=== PATIENT | male | born 1990 | race Caucasian/White ===

== ENCOUNTER 2024-11-19 11:05 | Inpatient (IN) | payer OTHER ==
[~2024-11-19] VITALS: Ht 167.6 cm; Wt 70.1 kg
--- NOTE | 2024-11-19 11:45 | ED.PDOC ---
GI ASSESSMENT HPI Comments 34 y.o male presents to the ED for a chief complaint of RLQ pain associated with nausea and vomiting that started this morning around 0900. Patient describes pain as sharp, constant, and non radiating with a pain rate of 10/10. Patient denies any diarrhea, fever, chills, hematemesis, dysuria. History of seizures with port insertion. Chief Complaint: Abdominal Pain Time Seen by MD: 10:37 Reviewed Notes: Nurses Notes, Medications, Allergies Allergies: Uncoded Allergies: BEES (Allergy, Unknown, 11/19/24) Information Source: Patient Mode of Arrival: Ambulatory Timing: Hours Duration: Since onset Quality: Sharp Vomitus: Hard Stool: Normal Severity: Moderate Recent: None Recent Hx of: None Pain Location: RLQ Modifying Factors: Nothing Associated sign and symptoms: Nausea, Vomiting, Abdominal Pain Past Medical History PAST MEDICAL HISTORY: Seizures Surgical History (Other): port Family History Family History: Reviewed,noncontributory to illness Social History Smoker: Non-Smoker Alcohol: Denies ETOH Use Drugs: Denies Drug Use Lives In: Home Constitutional: denies: chills, diaphoresis, fatigue, fever, malaise, sweats, weakness, others EENTM: denies: blurred vision, double vision, ear bleeding, ear discharge, ear drainage, ear pain, ear ringing, eye pain, eye redness, hearing loss, mouth pain, mouth swelling, nasal discharge, nose bleeding, nose congestion, nose pain, photophobia, tearing, throat pain, throat swelling, voice changes, others Respiratory: denies: cough, hemoptysis, orthopnea, SOB at rest, shortness of breath, SOB with excertion, stridor, wheezing, others Cardiovascular: denies: chest pain, dizzy spells, diaphoresis, Dyspnea on exertion, edema, irregular heart beat, left arm pain, lightheadedness, p alpitations, PND, syncope, others Gastrointestinal: reports: abdominal pain, nausea, vomiting; denies: abdomen distended, blood streaked bowels, constipated, diarrhea, dysphagia, difficulty swallowing, hematemesis, melena, poor appetite, poor fluid intake, rectal bleeding, rectal pain, others Genitourinary: denies: burning, dysuria, flank pain, frequency, hematuria, incontinence, penile discharge, penile sore, pain, testicle pain, testicle swelling, urgency, others Neurological: denies: dizziness, fainting, headache, left sided numbness, left sided weakness, numbness, paresthesia, pre-existing deficit, right sided numbness, right sided weakness, seizure, speech problems, tingling, tremors, weakness, others Musculoskeletal: denies: back pain, gout, joint pain, joint swelling, muscle pain, muscle stiffness, neck pain, others Integumetry: denies: bruises, change in color, change in hair/nails, dryness, laceration, lesions, lumps, rash, wounds, others Allergic/Immunocompromised: denies: Difficulty Healing, Frequent Infections, Hives, Itching, others Hematologic/Lymphatic: denies: anemia, blood clots, easy bleeding, easy bruising, swollen glands, others Endocrine: denies: excessive hunger, excessive sweating, excessive thirst, excessive urination, flushing, intolerance to cold, intolerance to heat, unexplained weight gain, unexplained weight loss, others Psychiatric: denies: anxiety, bipolar disorder, depression, hopeless, panic disorder, schizophrenia, sleepless, suicidal, others All Other Systems: Reviewed and Negative Physical Exam General Appearance: Moderate Distress HEENT: Normal ENT Inspection, Pharynx Normal, TMs Normal Neck: Full Range of Motion, Non-Tender, Normal, Normal Inspection Respiratory: Chest Non-Tender, Lungs Clear, No Accessory Muscle Use, No Resp iratory Distress, Normal Breath Sounds Cardiovascular: No Edema, No JVD, No Murmur, No Gallop, Normal Peripheral Pulses, Regular Rate/Rhythm Breast Exam: Deferred Gastrointestinal: Diffuse Genitalia: Deferred Pelvic: Deferred Rectal: Deferred Extremities: No calf tenderness, Normal capillary refill, Normal inspection, Normal range of motion, Non-tender, No pedal edema Musculoskeletal : Apperance: Normal Neurologic: Alert, vb net programmer II-XII nml as Tested, No Motor Deficits, Normal Affect, Normal Mood, No Sensory Deficits Cerebellar Function: NOT DONE Reflexes: NOT DONE Skin: Dry, Normal Color, Warm Peripheral Pulses: 3+ Radial (R), 3+ Radial (L) Lymphatic: No Adenopathy Was a procedure done? Was a procedure done?: No GI differential Dx Differential Diagnosis: Constipation, Diverticular disease, Esophagitis, Gastritis/PUD, Gastroenteritis, Viral X-Ray, Labs, Meds, VS Vital Signs Date Time Temp Pulse Resp B/P (MAP) Pulse Ox O2 Delivery O2 Flow Rate FiO2 11/19/24 11:11 98.0 71 18 114/64 97 98.0 Lab Test 11/19/24 12:18 Range/Units White Blood Count 13.1 H 4.4-10.8 10^3/uL Red Blood Count 4.91 4.5-5.90 10^6/uL Hemoglobin 14.6 13.5-17.5 g/dL Hematocrit 43.2 41.0-53.0 % Mean Corpuscular Volume 87.8 80.0-100.0 fL Mean Corpuscular Hemoglobin 29.7 28.0-32.0 pg Mean Corpuscular Hemoglobin Concent 33.8 32.0-36.0 g/dL Red Cell Distribution Width 13.9 11.8-14.3 % Platelet Count 314 140-450 10^3/uL Mean Platelet Volume 7.2 6.9-10.8 fL Neutrophils (%) (Auto) 86.2 H 37.0-80.0 % Lymphocytes (%) (Auto) 7.8 L 10.0-50.0 % Monocytes (%) (Auto) 5.5 0.0-12.0 % Eosinophils (%) (Auto) 0.3 0.0-7.0 % Basophils (%) (Auto) 0.2 0.0-2.0 % Neutrophils # (Auto) 11.2 H 1.6-8.6 10 ^3/uL Lymphocytes # (Auto) 1.0 0.4-5.4 10 ^3/uL Monocytes # (Auto) 0.7 0-1.3 10 ^3/uL Eosinophils # (Auto) 0 0-0.8 10 ^3/uL Basophils # (Auto) 0 0-0.2 10 ^3/uL Nucleated Red Blood Cells 0.0 % Sodium Level 141 136-145 mmol/L Potassium Level 4.3 3.5-5.1 mmol/L Chloride Level 110 H 98-107 mmol/L Carbon Dioxide Level 19 L 20-31 mmol/L Anion Gap 12 5-15 Blood Urea Nitrogen 6 L 9-23 mg/dL Creatinine 1.10 0.700-1.30 mg/dL Glomerular Filtration Rate Calc 89 >90 mL/min BUN/Creatinine Ratio 5.5 L 10.0-20.0 Serum Glucose 127 H 74-106 mg/dL Calcium Level 9.1 8.7-10.4 mg/dL [place] [address] Ph: [phone] DIAGNOSTIC IMAGING Diagnostic Imaging Report : [id number] Signed PATIENT: SUE CRAVEN ACCT: [id number] UNIT: [id number] : 1990 LOC: ER ROOM / BED: / AGE / SEX: 34 / M ADM STATUS: REG ER SERVICE 1145 ORDERING PHYSICIAN: VANI AWAD MD PROCEDURE(s): ABPL - CT AB PEL WO CON-NO ORAL OR IV REASON: stone ORDER NUMBER(s): [id number], ACCESSION NUMBER(s): [id number] CLINICAL INFORMATION: 34 years old, Male; stone. TECHNIQUE: Axial CT images of the abdomen and pelvis were obtained without IV contrast. Coronal and sagittal reformatted images were obtained, reviewed, and stored. Evaluation of the parenchymal organs is limited without IV contrast. Evaluation of the bowel and mesentery is limited without oral contrast. All CT scans at this medical facility are performed using dose modulation techniques as appropriate to a performed exam including the following: Automated exposure control was utilized; adjustment of the MA and/or KV according to patient size; and use of iterative reconstruction technique. CTDIvol = 7.05 mGy DLP = 382.51 mGy-cm COMPARISON: None FINDINGS: Lung bases: Ground-glass opacities in the right lower lobe, likely infectious or inflammatory in nature. Liver: Grossly unremarkable in its noncontrast enhanced appearance. No abnormal density or focal lesion identified. Biliary: No calcified gallstones or biliary ductal dilatation. Spleen: Unremarkable. Pancreas: Grossly unremarkable in its noncontrast enhanced appearance. Adrenal glands: Unremarkable. No mass. Kidneys and bladder: Moderate right hydronephrosis and hydroureter with punctate calculus in the right posterior bladder, likely recently passed bladder calculus. No other renal or ureteral calculi visualized. Mild circumferential thickening of the bladder wall also noted. Aorta/Vascular: No aneurysm or significant calcification. Retroperitoneum: No mass or lymphadenopathy. Bowel/mesentery: No small bowel obstruction. No free air or free fluid. Appendix is visualized and appears unremarkable. Scattered small colonic diverticula without adjacent inflammatory changes to suggest diverticulitis. Pelvic organs: Grossly unremarkable. Abdominal wall: No mass or hernia. Bones: No acute fracture or suspicious intraosseous lesion. Chronic deformity at the superior endplate of the L2 vertebral body with associated Schmorl's node and up to 20% loss of height. IMPRESSION: 1. Moderate right hydronephrosis and hydroureter with punctate calculus in the right posterior bladder, likely recently passed bladder calculus. Correlate with clinical findings. 2. No other renal or ureteral calculi visualized. 3. Mild circumferential thickening of the bladder wall is nonspecific. Correlate clinically for cystitis. 4. Additional nonacute findings as described above. Patient alert. Came in for abdominal pain. Excruciating pain. Vitals stable. Possible kidney stone. Establish intravenous access. Was given fluids. Was given Toradol. CT scan of the abdomen reviewed does show kidney stone. Possibly passed. Hydronephrosis. WBC elevated. Was given Rocephin. Explained to the patient. Continue monitoring. Time of 1ST Reevaluation: 11:42 Reevaluation 1ST: Unchanged Patient Education/Counseling: Diagnosis, Treatment, Prognosis Family Education/Counseling: Diagnosis, Treatment SEPSIS Sepsis Screen Date sepsis recognized/suspect: Nov 19, 2024 Time Sepsis recognized/suspect: 1105 Recent Procedure: No On Antibiotic Therapy: No Respiratory Rate >20: No Heart Rate >90: No Temp<36 C (96.8 F) or >38.3 C: No SBP <90 or MAP <65 mmHG: No New Acute Mental Status Change: No Is the patient on CPAP, BIPAP,: No Physician Orders Urinalysis (11/19/24 11:45) Ct Ab Pel Wo Con-No Oral Or Iv (11/19/24 11:45) Vital Signs Date Time Temp Pulse Resp B/P (MAP) Pulse Ox O2 Delivery O2 Flow Rate FiO2 11/19/24 11:11 98.0 71 18 114/64 97 98.0 Laboratory Tests Test 11/19/24 12:18 White Blood Count 13.1 10^3/uL (4.4-10.8) H Departure 1 Departure Time of Disposition: 14:05 Impression: Primary Impression: Acute abdominal pain Additional Impressions: Kidney stone Sepsis due to urinary tract infection Disposition: ADMITTED INPATIENT Admit to: Med Surg Condition: Guarded Critical Care Note Critical Care Time?: No Stability Stability form required: No I personally scribed for VANI AWAD MD ([email or web address]) on 11/19/24 at 11:45. Electronically submitted by Sheeba Savage ([facility]). I personally scribed for VANI AWAD MD ([email or web address]) on 11/19/24 at 14:39. Electronically submitted by Fara May ([facility]). VANI AWAD MD Nov 19, 2024 11:45
[2024-11-19 12:27] LABS: Hematocrit 43.2 % (41.0-53.0); Hemoglobin 14.6 g/dL (13.5-17.5); Mean Corpuscular Hemoglobin 29.7 pg (28.0-32.0); Mean Corpuscular Volume 87.8 fL (80.0-100.0); Nucleated Red Blood Cells % 0.0 %
[2024-11-19 12:35] LABS: Potassium 4.3 mmol/L (3.5-5.1); Sodium 141 mmol/L (136-145)
[2024-11-19 12:36] LABS: Anion Gap 12 (5-15); Calcium 9.1 mg/dL (8.7-10.4)
[2024-11-19 12:41] LABS: BUN/Creatinine Ratio 5.5 (10.0-20.0)
--- NOTE | 2024-11-19 12:48 | DVH ---
CLINICAL INFORMATION: 34 years old, Male; stone. TECHNIQUE: Axial CT images of the abdomen and pelvis were obtained without IV contrast. Coronal and s agittal reformatted images were obtained, reviewed, and stored. Evaluation of the parenchymal organs is limited without IV contrast. Evaluation of the bowel and mesentery is limited without oral contras t. All CT scans at this medical facility are performed using dose modulation techniques as appropriat e to a performed exam including the following: Automated exposure control was utilized; adjustment of the MA and/or KV according to patient size; and use of iterative reconstruction technique. CTDIvol = 7.05 mGy DLP = 382.51 mGy-cm COMPARISON: None FINDINGS: Lung bases: Ground-glass opacities in the right lower lobe, likely infectious or inflammatory in natu re. Liver: Grossly unremarkable in its noncontrast enhanced appearance. No abnormal density or focal lesi on identified. Biliary: No calcified gallstones or biliary ductal dilatation. Spleen: Unremarkable. Pancreas: Grossly unremarkable in its noncontrast enhanced appearance. Adrenal glands: Unremarkable. No mass. Kidneys and bladder: Moderate right hydronephrosis and hydroureter with punctate calculus in the righ t posterior bladder, likely recently passed bladder calculus. No other renal or ureteral calculi visu alized. Mild circumferential thickening of the bladder wall also noted. Aorta/Vascular: No aneurysm or significant calcification. Retroperitoneum: No mass or lymphadenopathy. Bowel/mesentery: No small bowel obstruction. No free air or free fluid. Appendix is visualized and ap pears unremarkable. Scattered small colonic diverticula without adjacent inflammatory changes to sug gest diverticulitis. Pelvic organs: Grossly unremarkable. Abdominal wall: No mass or hernia. Bones: No acute fracture or suspicious intraosseous lesion. Chronic deformity at the superior endplat e of the L2 vertebral body with associated Schmorl's node and up to 20% loss of height. IMPRESSION: 1. Moderate right hydronephrosis and hydroureter with punctate calculus in the right posterior bladde r, likely recently passed bladder calculus. Correlate with clinical findings. 2. No other renal or ureteral calculi visualized. 3. Mild circumferential thickening of the bladder wall is nonspecific. Correlate clinically for cysti tis. 4. Additional nonacute findings as described above.
[2024-11-19 13:17] LABS: Blood Urea Nitrogen 6 mg/dL (9-23); Carbon Dioxide 19 mmol/L (20-31); Chloride 110 mmol/L (98-107); Glucose 127 mg/dL (74-106)
[2024-11-19 15:32] VITALS: PULSE 68; RESP 20; O2SAT 98
[2024-11-19] MEDS: SODIUM CHLORIDE 0.9% 1,000 ML IV ONE (15:36)
[2024-11-19] MEDS: ONDANSETRON HCL 4 MG/2 ML VIAL IV ONE (15:37)
[2024-11-19] MEDS: MORPHINE SULFATE 4 MG/ML SYR/VIAL IV ONE (15:38)
--- NOTE | 2024-11-19 16:26 | DVHHP2 ---
History of Present Illness History of Present Illness 34 y.o male presents to the ED for a chief complaint of RLQ pain associated with nausea and vomiting that started this morning around 0900. Patient describes pain as sharp, constant, and non radiating with a pain rate of 10/10. Patient complaining of suprapubic region pain, significant nausea and vomiting, unable to hold p.o., decreased urination, dry mouth. Patient denies any diarrhea, fever, chills, hematemesis, dysuria. History of seizures with port insertion. Review of Systems Constitutional: No: Fever, Chills, Sweats, Weakness, Malaise, Other Respiratory: No: Cough, Dry, Shortness of breath, SOB with excertion, Wheezing, Hemoptysis, Pleuritic Pain, Sputum, Wheezing, Other Cardiovascular: No: Chest Pain, Palpitations, Orthopnea, Paroxysmal Noc. Dyspnea, Edema, Lt Headedness, Other Gastrointestinal: Nausea, Vomiting; No: Abdominal Pain, Diarrhea, Constipation, Melena, Hematochezia, Other Genitourinary: No Dysuria, No Frequency, No Incontinence, No Hematuria, No Retention, No Other Neurological: No: Weakness, Numbness, Incoordination, Change in speech, Confusion, Seizures, Other Allergies: Uncoded Allergies: BEES (Allergy, Unknown, 11/19/24) Exam Vital Signs Vital Signs Date Time Temp Pulse Resp B/P (MAP) Pulse Ox O2 Delivery O2 Flow Rate FiO2 11/19/24 15:38 68 14 112/75 11/19/24 15:32 98 Room Air* 0 21 11/19/24 15:31 97.8 97.8 Exam GEN: Healthy appearing, well-developed, NAD. HEENT: NC/AT; MMM. CV: RRR, no m/r/g. LUNGS: CTAB, no w/r/c. ABD: Suprapubic tenderness, hypoactive bowel sounds EXT: skin Warm, well perfused. no rashes. No clubbing, cyanosis, or edema. NEURO: Ambulating with no limitations. No focal deficits. Labs/Xrays Labs Test 11/19/24 12:18 Range/Units White Blood Count 13.1 H 4.4-10.8 10^3/uL Red Blood Count 4.91 4.5-5.90 10^6/uL Hemoglobin 14.6 13.5-17.5 g/dL Hematocrit 43.2 41.0-53.0 % Mean Corpuscular Volume 87.8 80.0-100.0 fL Mean Corpuscular Hemoglobin 29.7 28.0-32.0 pg Mean Corpuscular Hemoglobin Concent 33.8 32.0-36.0 g/dL Red Cell Distribution Width 13.9 11.8-14.3 % Platelet Count 314 140-450 10^3/uL Mean Platelet Volume 7.2 6.9-10.8 fL Neutrophils (%) (Auto) 86.2 H 37.0-80.0 % Lymphocytes (%) (Auto) 7.8 L 10.0-50.0 % Monocytes (%) (Auto) 5.5 0.0-12.0 % Eosinophils (%) (Auto) 0.3 0.0-7.0 % Basophils (%) (Auto) 0.2 0.0-2.0 % Neutrophils # (Auto) 11.2 H 1.6-8.6 10 ^3/uL Lymphocytes # (Auto) 1.0 0.4-5.4 10 ^3/uL Monocytes # (Auto) 0.7 0-1.3 10 ^3/uL Eosinophils # (Auto) 0 0-0.8 10 ^3/uL Basophils # (Auto) 0 0-0.2 10 ^3/uL Nucleated Red Blood Cells 0.0 % Sodium Level 141 136-145 mmol/L Potassium Level 4.3 3.5-5.1 mmol/L Chloride Level 110 H 98-107 mmol/L Carbon Dioxide Level 19 L 20-31 mmol/L Anion Gap 12 5-15 Blood Urea Nitrogen 6 L 9-23 mg/dL Creatinine 1.10 0.700-1.30 mg/dL Glomerular Filtration Rate Calc 89 >90 mL/min BUN/Creatinine Ratio 5.5 L 10.0-20.0 Serum Glucose 127 H 74-106 mg/dL Calcium Level 9.1 8.7-10.4 mg/dL SEPSIS Sepsis Screen Date sepsis recognized/suspect: Nov 19, 2024 Time Sepsis recognized/suspect: 1104 Recent Procedure: No On Antibiotic Therapy: No Respiratory Rate >20: No Heart Rate >90: No Temp<36 C (96.8 F) or >38.3 C: No SBP <90 or MAP <65 mmHG: No New Acute Mental Status Change: No Is the patient on CPAP, BIPAP,: No Physician Orders Urinalysis (11/19/24 11:45) Ct Ab Pel Wo Con-No Oral Or Iv (11/19/24 11:45) Sodium Chloride 0.9% (11/19/24 15:30) Vital Signs Date Time Temp Pulse Resp B/P (MAP) Pulse Ox O2 Delivery O2 Flow Rate FiO2 11/19/24 15:38 68 14 112/75 11/19/24 15:32 68 20 98 Room Air* 0 21 11/19/24 15:31 97.8 68 14 112/75 (87) 98 97.8 11/19/24 11:11 98.0 71 18 114/64 97 98.0 Laboratory Tests Test 11/19/24 12:18 White Blood Count 13.1 10^3/uL (4.4-10.8) H Medications Medications Dose Ordered Sig/Skyler Route Start Time Stop Time Status Last Admin Dose Admin Morphine Sulfate 4 mg ONCE ONCE IV 11/19/24 15:30 11/19/24 15:31 DC 11/19/24 15:38 4 MG Ondansetron HCl 4 mg ONCE ONCE IV 11/19/24 15:30 11/19/24 15:31 DC 11/19/24 15:37 4 MG Sodium Chloride 1,000 ml @ 1,000 mls/hr Q1H ONCE IV 11/19/24 15:30 11/19/24 16:29 11/19/24 15:36 1,000 MLS/HR Assessment/Plan Assessment/Plan 11/19: Patient has been having nausea emesis since yesterday, unable to hold p.o.,. Patient takes seizure medications. History of epilepsy. CT concerning for past kidney stone, but symptoms align with gastroenteritis, although compli cated cystitis remains possibility. Pending correction UA, ED is giving normal saline 1 L bolus, antiemetics, analgesics. We will wait to her UA and urine culture. Diagnosis: Acute gastroenteritis, infectious etiology likely Nephrolithiasis Cystitis possible, ruled out Intractable nausea and vomiting due to above P.o. intolerance due to above History of epilepsy Plan: Continue home meds for seizures, lacosamide 200 b.i.d., Xcopri 200 mg daily, Topamax 100 mg twice daily Start IV antibiotics ceftriaxone Flagyl Test UA urine culture lactic IV fluid bolus then maintenance Antiemetics prn Analgesia prn Med surge Full code Plan discussed with: Patient Date of Service: Nov 19, 2024 Billing Provider: ITALIA THOMAS MD Common Visit Codes: 10403-CBSFOTK INP/OBS CARE (HIGH) Secondary Visit Codes: 12358-[id number] CARE PLAN 30 MINUTES ITALIA THOMAS MD Nov 19, 2024 16:26
[2024-11-19] MEDS ORDERED: ACETAMINOPHEN 325 MG TAB PO PRN (16:30)
[2024-11-19] MEDS: HYDROcodone-ACET 5/325MG TAB PO PRN (17:13)
[2024-11-19] MEDS: SODIUM CHLORIDE 0.9% 1,000 ML IV SCH (17:14)
[2024-11-19] MEDS ORDERED: ONDANSETRON HCL 4 MG/2 ML VIAL IV PRN (19:30)
[2024-11-19 21:30] VITALS: BP 109/72; PULSE 71; RESP 18; TEMP 97.6; O2SAT 98
[2024-11-19 21:34] LABS: Urine Amorphous Crystal FEW /hpf (None Seen); Urine Protein, UAD TRACE (Negative)
[2024-11-19] MEDS: TOPIRAMATE 100 MG TAB PO SCH (21:47)
[2024-11-19] MEDS: LACOSAMIDE 50 MG TAB PO SCH (22:00)
[2024-11-19 22:42] VITALS: BP 125/75; PULSE 90; RESP 18; TEMP 98.1; O2SAT 99
[2024-11-20] VITALS (7 sets, daily range): BP systolic 80–136; BP diastolic 50–86; PULSE 57–76; RESP 16–18; TEMP 97.5–98.2; O2SAT 95–99
[2024-11-20 07:24] LABS: Hematocrit 35.5 % (41.0-53.0); Hemoglobin 12.2 g/dL (13.5-17.5); Mean Corpuscular Hemoglobin 29.3 pg (28.0-32.0); Mean Corpuscular Volume 85.6 fL (80.0-100.0); Nucleated Red Blood Cells % 0.0 %
[2024-11-20 07:57] LABS: Alanine Aminotransferase 20 U/L (7-40); Albumin 3.8 g/dL (3.2-4.8); Alkaline Phosphatase 78 U/L (46-116); Anion Gap 11 (5-15); Bilirubin, Total 0.5 mg/dL (0.2-1.0); Glucose 94 mg/dL (74-106); Potassium 3.7 mmol/L (3.5-5.1); Sodium 142 mmol/L (136-145); Total Protein 5.8 g/dL (5.7-8.2)
[2024-11-20 08:01] LABS: BUN/Creatinine Ratio 5.9 (10.0-20.0); Blood Urea Nitrogen < 5 mg/dL (9-23); Calcium 8.2 mg/dL (8.7-10.4); Carbon Dioxide 19 mmol/L (20-31); Chloride 112 mmol/L (98-107)
[2024-11-20] MEDS: XCOPRI 200 MG PO SCH (09:09)
--- NOTE | 2024-11-20 12:24 | DVHPN2 ---
Subjective seen at bedside today, doing well today. improving symptoms. Reviewed: H&P Changes from previous H/P or p: No Changes General: Per HPI Cardiovascular: No Chest Pain, No Palpitations, No Orthopnea, No Paroxysmal Noc. Dyspnea, No Edema, No Lt Headedness, No Other Respiratory: No Cough, No Dry, No Shortness of breath, No SOB with excertion, No Wheezing, No Hemoptysis, No Pleuritic Pain, No Sputum, No Other Gastrointestinal: Nausea, Vomiting; No Abdominal Pain, No Diarrhea, No Constipation, No Melena, No Hematochezia, No Other Genitourinary: No Dysuria, No Frequency, No Incontinence, No Hematuria, No Retention, No Other Objective Vitals Vital Signs Date Time Temp Pulse Resp B/P (MAP) Pulse Ox O2 Delivery O2 Flow Rate FiO2 11/20/24 09:00 97.6 66 16 80/52 (61) 98 97.6 11/20/24 08:00 Room Air* 0 21 Intake/Output Intake and Output 11/20/24 07:00 Intake Total 1350 ml Balance 1350 ml Intake Oral 250 ml IV Total 1100 ml # Voids 2 Exam GEN: Healthy appearing, well-developed, NAD. HEENT: NC/AT; MMM. CV: RRR, no m/r/g. LUNGS: CTAB, no w/r/c. ABD: Suprapubic tenderness, hypoactive bowel sounds EXT: skin Warm, well perfused. no rashes. No clubbing, cyanosis, or edema. NEURO: Ambulating with no limitations. No focal deficits. Medications Current Medications Medications Dose Ordered Sig/Skyler Route Start Time Stop Time Status Last Admin Dose Admin Sodium Chloride 1,000 ml @ 60 mls/hr [id number] IV 11/19/24 16:30 11/20/24 03:53 60 MLS/HR Acetaminophen/ Hydrocodone Bitart 1 tab Q4HP PRN PO 11/19/24 16:30 11/19/24 23:17 1 TAB Ondansetron HCl 4 mg Q4HP PRN IV 11/19/24 19:30 Acetaminophen 650 mg Q6HP PRN PO 11/19/24 16:30 Morphine Sulfate 2 mg Q4HPRN PRN IV 11/19/24 19:30 Ceftriaxone Sodium 50 ml @ 100 mls/hr DAILY@09 IV 11/19/24 16:30 11/20/24 08:58 100 MLS/HR Metronidazole 100 ml @ 100 mls/hr Q8HR IV 11/19/24 22:00 11/20/24 05:34 100 MLS/HR Lacosamide 200 mg BID PO 11/19/24 22:00 11/20/24 08:58 200 MG Patient Own Medication 1 DAILY PO 11/20/24 10:00 Topiramate 100 mg BID PO 11/19/24 22:00 11/20/24 08:59 100 MG Laboratory Results Laboratory Tests 11/20/24 06:04 Chemistry Test 11/20/24 06:04 Albumin 3.8 g/dL (3.2-4.8) Calcium Level 8.2 mg/dL (8.7-10.4) L Total Protein 5.8 g/dL (5.7-8.2) LFT Test 11/20/24 06:04 Alanine Aminotransferase (ALT) 20 U/L (7-40) Alkaline Phosphatase 78 U/L (46-116) Aspartate Amino Transferase (AST) 14 U/L (13-40) Total Bilirubin 0.5 mg/dL (0.2-1.0) Urinalysis Test 11/19/24 19:30 Urine Color Light-yellow (Yellow) Urine Clarity Turbid (Clear) H Urine pH 6.5 (5.0-9.0) Urine Specific [place] 1.014 (1.001-1.035) Urine Protein Trace (Negative) H Urine Ketones Negative (Negative) Urine Blood 2+ /uL (Negative) H Urine Nitrite 2+ (Negative) H Urine Bilirubin Negative (Negative) Urine Urobilinogen Normal mg/dL (Negative) Urine Leukocyte Esterase 3+ /uL (Negative) Urine RBC 59 /hpf (0 - 3) Urine Microscopic WBC 44 /HPF (0-3) H Urine Squamous Epithelial Cells Few /hpf (<5) Urine Amorphous Crystals Few /hpf (None Seen) Urine Bacteria Few /hpf (None Seen) H Urine Hyaline Casts Few /lpf (0 - 2) Urine Mucus Few (None Seen) Urine Glucose Normal mg/dL (Normal) Microbiology Microbiology Date/Time Source Procedure Growth Status 11/19/24 19:30 Urine - Midstream Clean Catch Urine Culture - Preliminary Resulted Labs and/or images reviewed: Labs reviewed by me, Image(s) reviewed by me Assessment/Plan Assessment/Plan 11/19: Patient has been having nausea emesis since yesterday, unable to hold p.o.,. Patient takes seizure medications. History of epilepsy. CT concerning for past kidney stone, but symptoms align with gastroenteritis, although complicated cystitis remains possibility. Pending correction UA, ED is giving normal saline 1 L bolus, antiemetics, analgesics. We will wait to her UA and urine culture. 11/20: Patient feeling better, no further nausea tolerating clear liquid diet we will eval, we will advance diet to regular. No seizures continued home seizure medications. Urine does have infection, there is also past bladder tone from CT giving IV antibiotics for possible acute complicated cystitis along with acute complicated gastroenteritis. If patient continues to improve with stable vitals possible discharge tomorrow a.m.. Patient lives in [place]. Abdomen is now nontender, bowel sounds normoactive. Diagnosis: Acute gastroenteritis, infectious etiology likely Nephrolithiasis Cystitis possible, ruled out Intractable nausea and vomiting due to above P.o. intolerance due to above History of epilepsy Plan: Continue home meds for seizures, lacosamide 200 b.i.d., Xcopri 200 mg daily, Topamax 100 mg twice daily Start IV antibiotics ceftriaxone Flagyl Test UA urine culture lactic IV fluid bolus then maintenance Antiemetics prn Analgesia prn Med surge Full code Plan discussed with: Patient My Orders Orders - ITALIA THOMAS MD Procedure Category Date Status Time Admit ADMIT 11/19/24 Transmitted 16:21 Code Status CODE 11/19/24 Transmitted 16:21 Sodium Chloride 0.9% PHA 11/19/24 In Process 16:30 Hydrocodone-Acet PHA 11/19/24 In Process 5/325mg Tab ([place] 16:30 Ondansetron Hcl PHA 11/19/24 In Process (Zofran) 19:30 Acetaminophen Tablet PHA 11/19/24 In Process (Tylenol Tablet) 16:30 Clear Liq Diet DIET 11/19/24 Transmitted Dinner Bedrest With Bathroom TADEO 11/19/24 In Process Privileg 16:21 Morphine Sulfate PHA 11/19/24 In Process Injection 19:30 Ceftriaxone 1gm/50ml PHA 11/19/24 In Process (Rocephin) 16:30 Metronidazole PHA 11/19/24 In Process 500mg/100ml (Flagyl 22:00 Urine Bacterial ZECHARIAH 11/19/24 In Process Culture 16:21 Patients Own PHA 11/20/24 In Process Medication 10:00 Lacosamide (Vimpat) PHA 11/19/24 In Process 22:00 Topiramate (Topamax) PHA 11/19/24 In Process 22:00 Date of Service: Nov 20, 2024 Billing Provider: ITALIA THOMAS MD Common Visit Codes: [id number] INP/OBS CARE(HIGH) ITALIA THOMAS MD Nov 20, 2024 12:24
--- NOTE | 2024-11-20 13:57 | DVH ---
INDICATION: Assess interval hydronephrosis TECHNIQUE: Multiple real-time sonographic images of the kidneys and bladder were obtained. COMPARISON: CT abdomen/ pelvis 11/19/2024 FINDINGS: The right kidney measures 11.3 cm in length, which is normal in size. There is normal echog enicity of the right kidney. No hydronephrosis. The left kidney measures 11.3 cm in length, which is normal in size. There is normal echogenicity of the left kidney. There is mild prominence of the renal pelvis without angelita hydronephrosis. No intraluminal mass is seen in the bladder. Both ureteral jets are visualized during this study. The bladder volume measures 427 cc. IMPRESSION: Mild prominence of the right renal pelvis without angelita hydronephrosis. The right and the left ureteral jets are visualized during this study.
[2024-11-20] MEDS: MORPHINE SULFATE INJ 2 MG/ml SYRG IV PRN (16:57)
[2024-11-21 01:00] VITALS: BP 98/65; PULSE 57; RESP 18; TEMP 97; O2SAT 99
[2024-11-21 05:00] VITALS: BP 124/75; PULSE 78; RESP 18; TEMP 97.1; O2SAT 98
[2024-11-21 08:12] LABS: Hematocrit 36.2 % (41.0-53.0); Hemoglobin 12.6 g/dL (13.5-17.5); Mean Corpuscular Hemoglobin 29.8 pg (28.0-32.0); Mean Corpuscular Volume 85.6 fL (80.0-100.0); Nucleated Red Blood Cells % 0.0 %
[2024-11-21 08:18] LABS: Alanine Aminotransferase 18 U/L (7-40); Albumin 3.9 g/dL (3.2-4.8); Alkaline Phosphatase 82 U/L (46-116); Anion Gap 10 (5-15); BUN/Creatinine Ratio 7.7 (10.0-20.0); Carbon Dioxide 22 mmol/L (20-31); Glucose 90 mg/dL (74-106); Potassium 3.9 mmol/L (3.5-5.1); Sodium 142 mmol/L (136-145); Total Protein 6.1 g/dL (5.7-8.2)
[2024-11-21 08:19] LABS: Bilirubin, Total 0.4 mg/dL (0.2-1.0)
[2024-11-21 08:27] LABS: Blood Urea Nitrogen 7 mg/dL (9-23); Calcium 8.3 mg/dL (8.7-10.4); Chloride 110 mmol/L (98-107)
[2024-11-21 09:00] VITALS: BP 104/60; PULSE 50; RESP 18; TEMP 97.8; O2SAT 99
--- NOTE | 2024-11-21 12:49 | DVHDS2 ---
Discharge Summary Date of Admission Nov 19, 2024 at 16:21 Date of Discharge: Nov 21, 2024 Labs/Diagnostic Data: Laboratory Results Test 11/21/24 07:05 11/19/24 19:30 11/19/24 16:36 White Blood Count 6.6 10^3/uL (4.4-10.8) Red Blood Count 4.23 10^6/uL (4.5-5.90) Hemoglobin 12.6 g/dL (13.5-17.5) Hematocrit 36.2 % (41.0-53.0) Mean Corpuscular Volume 85.6 fL (80.0-100.0) Mean Corpuscular Hemoglobin 29.8 pg (28.0-32.0) Mean Corpuscular Hemoglobin Concent 34.7 g/dL (32.0-36.0) Red Cell Distribution Width 13.8 % (11.8-14.3) Platelet Count 282 10^3/uL (140-450) Mean Platelet Volume 7.4 fL (6.9-10.8) Neutrophils (%) (Auto) 50.4 % (37.0-80.0) Lymphocytes (%) (Auto) 36.3 % (10.0-50.0) Monocytes (%) (Auto) 10.1 % (0.0-12.0) Eosinophils (%) (Auto) 2.7 % (0.0-7.0) Basophils (%) (Auto) 0.5 % (0.0-2.0) Neutrophils # (Auto) 3.3 10 ^3/uL (1.6-8.6) Lymphocytes # (Auto) 2.4 10 ^3/uL (0.4-5.4) Monocytes # (Auto) 0.7 10 ^3/uL (0-1.3) Eosinophils # (Auto) 0.2 10 ^3/uL (0-0.8) Basophils # (Auto) 0 10 ^3/uL (0-0.2) Nucleated Red Blood Cells 0.0 % Sodium Level 142 mmol/L (136-145) Potassium Level 3.9 mmol/L (3.5-5.1) Chloride Level 110 mmol/L (98-107) Carbon Dioxide Level 22 mmol/L (20-31) Anion Gap 10 (5-15) Blood Urea Nitrogen 7 mg/dL (9-23) Creatinine 0.91 mg/dL (0.700-1.30) Glomerular Filtration Rate Calc 112 mL/min (>90) BUN/Creatinine Ratio 7.7 (10.0-20.0) Serum Glucose 90 mg/dL (74-106) Calcium Level 8.3 mg/dL (8.7-10.4) Total Bilirubin 0.4 mg/dL (0.2-1.0) Aspartate Amino Transferase (AST) 12 U/L (13-40) Alanine Aminotransferase (ALT) 18 U/L (7-40) Alkaline Phosphatase 82 U/L (46-116) Total Protein 6.1 g/dL (5.7-8.2) Albumin 3.9 g/dL (3.2-4.8) Urine Color Light-yellow (Yellow) Urine Clarity Turbid (Clear) Urine pH 6.5 (5.0-9.0) Urine Specific [place] 1.014 (1.001-1.035) Urine Protein Trace (Negative) Urine Ketones Negative (Negative) Urine Blood 2+ /uL (Negative) Urine Nitrite 2+ (Negative) Urine Bilirubin Negative (Negative) Urine Urobilinogen Normal mg/dL (Negative) Urine Leukocyte Esterase 3+ /uL (Negative) Urine RBC 59 /hpf (0 - 3) Urine Microscopic WBC 44 /HPF (0-3) Urine Squamous Epithelial Cells Few /hpf (<5) Urine Amorphous Crystals Few /hpf (None Seen) Urine Bacteria Few /hpf (None Seen) Urine Hyaline Casts Few /lpf (0 - 2) Urine Mucus Few (None Seen) Urine Glucose Normal mg/dL (Normal) Lactic Acid Level 1.9 mmol/L (0.4-2.0) Other Laboratory Tests 11/21/24 07:05 Brief Hx & Hospital Course: 34 y.o male presents to the ED for a chief complaint of RLQ pain associated with nausea and vomiting that started this morning around 0900. Patient describes pain as sharp, constant, and non radiating with a pain rate of 10/10. Patient complaining of suprapubic region pain, significant nausea and vomiting, unable to hold p.o., decreased urination, dry mouth. Patient denies any diarrhea, fever, chills, hematemesis, dysuria. History of seizures with port insertion. 11/19: Patient has been having nausea emesis since yesterday, unable to hold p.o.,. Patient takes seizure medications. History of epilepsy. CT concerning for past kidney stone, but symptoms align with gastroenteritis, although complicated cystitis remains possibility. Pending correction UA, ED is giving normal saline 1 L bolus, antiemetics, analgesics. We will wait to her UA and urine culture. 11/20: Patient feeling better, no further nausea tolerating clear liquid diet we will eval, we will advance diet to regular. No seizures continued home seizure medications. Urine does have infection, there is also past bladder tone from CT giving IV antibiotics for possible acute complicated cystitis along with acute complicated gastroenteritis. If patient continues to improve with stable vitals possible discharge tomorrow a.m.. Patient lives in [place]. Abdomen is now nontender, bowel sounds normoactive. 11/21: Patient continues to improve, feeling well no abdominal pain anymore, tolerating diet well, passing gas, ambulating. Patient vital signs stable stable for discharge as per plan below. Patient will have to take Flomax 0.4 mg daily for next 30 days, take Augmentin 875 mg twice daily for 5 days for possible UTI and or gastroenteritis. Follow up with PCP to review discharge, continue home seizure medications as prescribed by primary neurologist. Diagnosis: Acute gastroenteritis, infectious etiology likely Nephrolithiasis, without hydronephrosis Acute complicated cystitis, complicated with nephrolithiasis Intractable nausea and vomiting due to above P.o. intolerance due to above History of epilepsy Plan: -Flomax 0.4 mg daily for next 30 days, and hydrate aggressively -Augmentin 875 mg twice daily for 5 days -Follow up with PCP to review discharge, -continue home seizure medications as prescribed by primary neurologist. Condition at Discharge: Fair Final Diagnosis/Problems List Acute gastroenteritis, infectious etiology likely Nephrolithiasis, without hydronephrosis Acute complicated cystitis, complicated with nephrolithiasis Intractable nausea and vomiting due to above P.o. intolerance due to above History of epilepsy Discharge Disposition: Home Discharge Statement: "Patient was advised to return to the ER or call 911 if any headaches, dizziness, shortness of breath, chest pain, abdominal pain, bleeding, fevers, or worsening of medical condition. Patient was counseled about treatment plan, medications, possible side effects, patientverbalized understanding. All questions were answered to the best of my ability. This discharge took greater then 30 minutes in planning, reviewing documentation, counseling the patient, and discussing with other team members." ASSESSMENT ASSESSMENT Assessment Date of Service: Nov 21, 2024 Billing Provider: ITALIA THOMAS MD Common Visit Codes: 16299-WIG/OBS DISCH DAY >30min ITALIA THOMAS MD Nov 21, 2024 12:49
[2024-11-21 13:00] VITALS: BP 117/64; PULSE 68; RESP 18; TEMP 98; O2SAT 95
[2024-11-21] MEDS ORDERED: TAMS-35 PO (15:20)
[2024-11-21] MEDS ORDERED: AUG875T PO (15:20)
[2024-11-21 15:43] VITALS: TEMP 36.7
[2024-11-21 16:37] VITALS: BP 131/74; PULSE 74; RESP 20; TEMP 98.1; O2SAT 95
== END 2024-11-21 18:00 | disposition home or self-care (01) | DRG 249 ==
LOC: ER 11:05 → OVERFLOW 16:21 → WEST WING 22:25
PROVIDERS: ADMIT Student in an Organized Health Care Education/Training Program; ATTEND Student in an Organized Health Care Education/Training Program
DX: A09 Infectious gastroenteritis and colitis, unspecified (principal); N13.6 Pyonephrosis; G40.909 Epilepsy, unspecified, not intractable, without status epilepticus; Z79.899 Other long term (current) drug therapy; Z91.030 Bee allergy status
CPT/HCPCS: 36415; 74176; 76775; 80048; 80053; 81001; 83605; 85025; 87086; G0378; J2405; J3490